=== PATIENT | female | born 1995 | race African-American/Black ===

== ENCOUNTER 2022-04-21 00:31 | Emergency (ER) | payer MEDICAID ==
[~2022-04-21] VITALS: Ht 162.6 cm; Wt 68.8 kg
[2022-04-21 00:58] VITALS: BP 113/52
== END 2022-04-21 03:38 | disposition left against medical advice (07) ==
LOC: ER 00:31
DX: J02.9 Acute pharyngitis, unspecified (principal); Z53.21 Procedure and treatment not carried out due to patient leaving prior to being seen by health care provider

== ENCOUNTER 2023-04-22 14:37 | Emergency (ER) | payer MEDICAID | END 2023-04-22 15:37 | disposition left against medical advice (07) | LOC: EDBD 14:37 → ER 14:37 | DX: R10.32 Left lower quadrant pain (principal); Z53.21 Procedure and treatment not carried out due to patient leaving prior to being seen by health care provider ==

== ENCOUNTER 2023-05-30 06:56 | Emergency (ER) | payer MEDICAID ==
[~2023-05-30] VITALS: Ht 160 cm; Wt 70.0 kg
[2023-05-30 07:30] VITALS: BP 118/84; PULSE 80; RESP 18; O2SAT 97
[2023-05-30 08:22] LABS: Urine Bacteria NONE SEEN /hpf (None Seen); Urine Blood Negative /uL (Negative); Urine Clarity Clear (Clear); Urine Protein, UAD Negative (Negative); Urine Specific Gravity 1.022 (1.001-1.035); Urine Urobilinogen Normal (Negative); Urine WBC 1 /hpf (0 - 5); Urine pH 6.5 (5.0-8.0)
[2023-05-30 08:25] LABS: Urine Color Yellow (Yellow)
== END 2023-05-30 09:39 | disposition left against medical advice (07) ==
LOC: ER 06:56
DX: R10.13 Epigastric pain (principal); R11.2 Nausea with vomiting, unspecified; Z53.21 Procedure and treatment not carried out due to patient leaving prior to being seen by health care provider
CPT/HCPCS: 81001